=== PATIENT | female | born 1980 | race Caucasian/White ===

== ENCOUNTER 2018-02-27 05:49 | Day surgery (SDC) | payer OTHER, SELFPAY ==
[2018-02-27 06:06] VITALS: BP 106/69; PULSE 68; RESP 16; TEMP 36.2; O2SAT 100; BMI 27.2
[2018-02-27 06:23] LABS: Internal QC Validated? YES +Cl - CLEAR BKGD; Pregnancy, Urine Negative Negative
--- NOTE | 2018-02-27 07:23 | PCM.OP.BLANK ---
Operative Report Date of Procedure: 02/27/18 Surgeon: dr. Filomena Dietrich Grain Roaster: none Pre op dx: stenotic cervix, Narrown introitus Post OP dx: Same Procedure performed: IUD removal and Mirena Insertion Complications: NONE Anesthesia: MAC Implantable devices: Mirena IUD EBL: NONE Findings: Cervix anterior, uterus measured to 8.5cm- IUD inserted without complications Operative report: Given anesthesia. [facility] was then draped and vaginal prep performed. At this time the speculum was placed the posterior fornix of vagina and posterior lip of the cervix was grasped with the tenaculum. Tenaculum was then moved to the anterior lip the cervix. IUD string was noted and pulled with a ring forcep. Cervix appeared normal. The IUD came out without complication. Uterine sound was performed cavity 8.5 cm. IUD was opened and the Mirena IUD was placed without complication. Strings were cut to approximately 2.5 cm from the office. There were no complications. Tenaculum was removed. Good hemostasis was appreciated. Vaginal sweep was performed was negative.
--- NOTE | 2018-02-27 07:27 | OP.PCM_ITS ---
Operative Report Date of Procedure: 02/27/18 Surgeon: dr. Filomena Dietrich Barrel Assembler: none Pre op dx: stenotic cervix, Narrown introitus Post OP dx: Same Procedure performed: IUD removal and Mirena Insertion Complications: NONE Anesthesia: MAC Implantable devices: Mirena IUD EBL: NONE Findings: Cervix anterior, uterus measured to 8.5cm- IUD inserted without complications Operative report: Given anesthesia. [facility] was then draped and vaginal prep performed. At this time the speculum was placed the posterior fornix of vagina and posterior lip of the cervix was grasped with the tenaculum. Tenaculum was then moved to the anterior lip the cervix. IUD string was noted and pulled with a ring forcep. Cervix appeared normal. The IUD came out without complication. Uterine sound was performed cavity 8.5 cm. IUD was opened and the Mirena IUD was placed without complication. Strings were cut to approximately 2.5 cm from the office. There were no complications. Tenaculum was removed. Good hemostasis was appreciated. Vaginal sweep was performed was negative.
--- NOTE | 2018-02-27 07:27 | PCM.DC ---
You will use the following diet at home:: No restrictions Your food should be the consistency of: Regular Discharge Activity: Return to Normal Activity May resume sexual activity in: No Restrictions, - - use condoms for the next 7 days. Allergies/Adverse Reactions: Allergies No Known Allergies Allergy (Verified 02/20/18 09:01) Medications to take at Discharge NK [NK] 02/20/18 Primary Care Physician: Kaden Archibald MD [Primary Care Provider] -
[2018-02-27 07:33] VITALS: BP 106/48; BP 106/69; PULSE 55; RESP 16; TEMP 37.2; O2SAT 96
[2018-02-27 07:40] VITALS: BP 106/69; BP 109/63; PULSE 55; RESP 14; O2SAT 97
[2018-02-27 07:45] VITALS: BP 106/54; BP 106/69; PULSE 55; RESP 14; O2SAT 98
[2018-02-27 07:50] VITALS: BP 105/58; BP 106/69; PULSE 60; RESP 16; TEMP 36.8; O2SAT 97
[2018-02-27 08:16] VITALS: BP 106/69
== END 2018-02-27 08:21 | disposition home or self-care (01) ==
LOC: SDC 05:50 → AC 05:51
PROVIDERS: Specialist; Family Provider Family Medicine; PCP Family Medicine; Visit Provider Obstetrics & Gynecology
PROC: 0UJD8ZZ Inspection of Uterus and Cervix, Via Natural or Artificial Opening Endoscopic (ICD-10-PCS; CPT 58555; principal; 2018-02-27 07:15)
DX: Z30.433 Encounter for removal and reinsertion of intrauterine contraceptive device (principal); N88.2 Stricture and stenosis of cervix uteri; N89.6 Tight hymenal ring; Z85.828 Personal history of other malignant neoplasm of skin
CPT/HCPCS: 58300; 58301; 81025; J7120